=== PATIENT | female | born 1960 | race Caucasian/White ===

== ENCOUNTER 2020-02-18 00:18 | Emergency (ER) | payer BC ==
[~2020-02-18] VITALS: Ht 157.5 cm; Wt 63.6 kg
[2020-02-18 00:22] VITALS: TEMP 98.3
[2020-02-18] MEDS ORDERED: NORCO 325 MG-7.1 TAB PO (02:05)
[2020-02-18 02:30] VITALS: BP 128/68; PULSE 80
== END 2020-02-18 02:30 | disposition home or self-care (01) ==
LOC: COL.ER 00:18
DX: S52.502A Unspecified fracture of the lower end of left radius, initial encounter for closed fracture (principal); S90.32XA Contusion of left foot, initial encounter; R40.2410 Glasgow coma scale score 13-15, unspecified time; W10.9XXA Fall (on) (from) unspecified stairs and steps, initial encounter; Y92.002 Bathroom of unspecified non-institutional (private) residence as the place of occurrence of the external cause
CPT/HCPCS: J1885; J2250; J2405; J3010